=== PATIENT | female | born 1945 | race Caucasian/White ===

== ENCOUNTER 2020-03-23 16:28 | Inpatient (IN) | payer MEDICARE, OTHER ==
[~2020-03-23] VITALS: Ht 154.9 cm; Wt 96.5 kg
[~2020-03-23 16:28] MED LIST: ACETAMINOPHEN-1 EAC1 PO; AFRIN15 ML NS; AMOXICILLIN 50500 MG PO; BETA BLOCKER; BISOPROLOL FUMAR5 MG PO; CLARITIN-D 121 EACH PO; DOXYCYCLINE 10100 MG; FLEXERIL PO; HYDROCODON-ACE1 EACH PO; IBUPROFEN 800800 M1 PO; KEFLEX500 MG PO; LISINOPRIL-HCT1 EAC2 PO; NORCO 5-325 TA1 EACH PO; PROAIR HFA8.5 GM INH; PROMETHAZINE D480 ML PO; PROTONIX; PROTONIX40 M2 PO; REQUIP0.5 MG PO; SULFA DRUG; TESSALON PERLE100 MG PO; ZESTRIL40 MG PO; ZPAK PO; water pill PO
[2020-03-23 16:35] VITALS: BP 118/54; BP 121/19
[2020-03-23] MEDS ORDERED: NEURONTIN100 MG PO (16:45)
[2020-03-23] MEDS ORDERED: REQUIP 1 MG TABL1 M1 PO (16:45)
[2020-03-23 18:39] LABS: HEMATOCRIT 39.1 % (37.0-47.0); HEMOGLOBIN 13.5 gm/dL (12.0-15.0); MCH 30.2 pg (26.0-34.0); MCHC 34.4 g/dL (28.0-37.0); MCV 87.7 fL (80.0-100.0); MPV 8.7 fl. (7.2-11.1); NUCLEATED RBCS 0 /100WBC; PLATELET COUNT* 227 thou/uL (150-400); RBC 4.46 mil/uL (4.20-5.00); RDW-CV 14.6 % (10.5-14.5)
[2020-03-23 18:46] LABS: CALCIUM 8.5 mg/dL (8.5-10.1)
[2020-03-23 18:47] LABS: APTT 24.1 Seconds (25.0-31.3); INR 1.1
[2020-03-23 18:56] LABS: ALBUMIN 3.6 g/dL (3.4-5.0); TOTAL BILIRUBIN 0.4 mg/dL (<0.1-1.0)
[2020-03-23] MEDS ORDERED: REQUIP 0.25 M0.25 M1 PO (19:03)
[2020-03-23 19:04] LABS: ABSOLUTE LYMPHOCYTES 1.6 thou/uL (0.8-5.3); ABSOLUTE MONOCYTES 0.4 thou/uL (0.0-1.2); ABSOLUTE NEUTROPHILS 11.1 thou/uL (1.6-8.1); ATYPICAL LYMPHS 3 %; PLATELET ESTIMATE ADEQUATE
[2020-03-23 19:40] VITALS: BP 120/49
[2020-03-23 20:00] VITALS: BP 96/52
[2020-03-24] VITALS (7 sets, daily range): BP systolic 94–135; BP diastolic 40–57
[2020-03-24 04:42] LABS: HEMATOCRIT 32.5 % (37.0-47.0); MCH 30.5 pg (26.0-34.0); MCHC 34.6 g/dL (28.0-37.0); MCV 88.1 fL (80.0-100.0); MPV 8.3 fl. (7.2-11.1); RBC 3.69 mil/uL (4.20-5.00); RDW-CV 14.1 % (10.5-14.5); WBC 10.1 thou/uL (4.0-11.0)
[2020-03-24 04:47] LABS: PROTIME 10.7 Seconds (9.20-11.50)
[2020-03-24 05:00] LABS: ALBUMIN 2.9 g/dL (3.4-5.0); CALCIUM 7.6 mg/dL (8.5-10.1); MAGNESIUM 1.7 mg/dL (1.8-2.4); PHOSPHORUS* 5.4 mg/dL (2.5-4.9); POTASSIUM 4.9 mmol/L (3.5-5.1)
[2020-03-24 05:29] LABS: HEMOGLOBIN 11.2 gm/dL (12.0-15.0)
--- NOTE | 2020-03-24 09:29 | EKG ---
[place] [address] ELECTROCARDIOGRAM REPORT Name: GARAYCHIKA Room: [address] ADM IN .R.#: [id number] Admission: 03/23/20 Attend Phys: Izabella hernández Sa Discharge: Date of : 49 Date of Service: 03/23/20 1831 Report #: [id number] THIS REPORT FOR: //name// [facility] ED Test Date: 2020-03-23 Test Time: 18:31:49 Pat Name: CHIKA GARAY Department: Room: [facility] Gender: F [employer] Developer: FAUSTINO NÚÑEZ RN : 1945 Requested By: Klaudia Kearns Order Number: [id number] MD: Arvind Saravia Measurements Intervals [place] Rate: 60 P: 54 MN: 148 QRS: 13 QRSD: 93 T: 17 QT: 450 QTc: 450 Interpretive Statements Sinus rhythm Low voltage, precordial leads Baseline wander in lead(s) V2 Compared to ECG 02/11/2015 10:32:10 Low QRS voltage now present Electronically Signed On 03-24-2020 9:28:13 CDT by Arvind Saravia [email or web address] <ELECTRONICALLY SIGNED> By: Arvind Saravia MD, [facility] 03/24/20 0928 30 30 Arvind Saravia MD, [facility] /EPI
[2020-03-24 10:29] LABS: URINE BLOOD NEGATIVE (Negative); URINE CLARITY CLEAR; URINE COLOR YELLOW; URINE GLUCOSE-RANDOM NEGATIVE (Negative); URINE KETONES NEGATIVE (Negative); URINE LEUKOCYTES-REFLEX 1+ (Negative); URINE NITRITE-REFLEX NEGATIVE (Negative); URINE PROTEIN NEGATIVE (Negative); URINE SPECIFIC GRAVITY >= 1.030 (1.005-1.030); URINE UROBILINOGEN 0.2 E.U./dl (0.2-1.0)
[2020-03-24 10:30] LABS: URINE BILIRUBIN 1+ (Negative)
[2020-03-24 10:31] LABS: ICTOTEST (BILI CONFIRMATORY) Negative (Negative)
[2020-03-24 10:38] LABS: CASTS None Seen /LPF (None Seen); CRYSTALS None Seen /LPF (None Seen); URINE RBC None Seen /HPF (0-2); URINE WBC-REFLEX 6-15 Few /HPF (0-5)
--- NOTE | 2020-03-24 12:42 | 2DMMODE ---
[place] [address] 2 D/M-MODE ECHOCARDIOGRAM Name: CHIKA GARAY Room: [address] IN [facility]#: [id number] Admission: 03/23/20 Attend Phys: Izabella hernández Sa Discharge: Date of : 49 Date of Service: 03/24/20 1240 Report #: [id number] THIS REPORT FOR: cc: Daria Graves MD, Allison Louise MD Holkins,Arvind Turner MD [facility] ~ APPROVED REPORT Study performed: 03/24/2020 10:47:10 EXAM: Comprehensive 2D, Doppler, and color-flow Echocardiogram Patient Location: In-Patient Room #: [facility] Status: routine BSA: 1.91 HR: 61 bpm BP: 104/41 mmHg Rhythm: NSR Other Information Study Quality: Good Indications Dyspnea 2D Dimensions IVSd: 10.08 (7-11mm) LVOT Diam: 18.56 (18-24mm) LVDd: 41.94 mm PWd: 8.28 (7-11mm) Ascending Ao: 27.09 (22-36mm) LVDs: 21.92 (25-40mm) Aortic Root: 29.53 mm Volumes Left Atrial Volume (Systole) LA ESV Index: 21.30 mL/m2 Aortic Valve AoV Peak Omar.: 1.68 m/s AO Peak Gr.: 11.25 mmHg LVOT Max P.96 mmHg AO Mean Gr.: 6.06 mmHg LVOT Mean P.32 mmHg LVOT Max V: 1.73 m/s AO V2 VTI: 32.91 cm LVOT Mean V: 1.04 m/s KATIANA (VTI): 3.10 cm2 LVOT V1 VTI: 37.67 [place] [address] 2 D/M-MODE ECHOCARDIOGRAM Name: CHIKA GARAY Room: [address] IN [facility]#: [id number] Admission: 03/23/20 Attend Phys: Izabella hernández Sa Discharge: Date of : 49 Date of Service: 03/24/20 1240 Report #: [id number] Mitral Valve E/A Ratio: 0.77 MV Decel. Time: 214.95 ms MV E Max Omar.: 0.89 m/s MV PHT: 62.33 ms MVA (PHT): 3.53 cm2 TDI E/Lateral E': 7.42 E/Medial E': 9.89 Medial E' Omar.: 0.09 m/s Lateral E' Omar.: 0.12 m/s Pulmonary Valve PV Peak Omar.: 1.15 m/s PV Peak Gr.: 5.28 mmHg Tricuspid Valve RAP Estimate: 5.00 mmHg TR Peak Gr.: 47.26 mmHg RVSP: 52.00 mmHg PA Pressure: 52.00 mmHg Left Ventricle The left ventricle is normal size. There is normal LV segmental wall motion. There is normal left ventricular wall thickness. Left ventricular systolic function is normal. The left ventricular ejection fraction is within the normal range. LVEF is 60-65%. Grade I - abnormal relaxation pattern. Right Ventricle The right ventricle is normal size. The right ventricular systolic function is normal. Atria The left atrium size is normal. The right atrium size is normal. Aortic Valve The aortic valve is normal in structure. No aortic regurgitation is present. There is no aortic valvular stenosis. Mitral Valve Mild mitral annular calcification. There is no mitral valve regurgitation noted. No evidence of mitral valve stenosis. Tricuspid Valve The tricuspid valve is normal in structure. Mild tricuspid regurgitation. Moderate [place] [address] 2 D/M-MODE ECHOCARDIOGRAM Name: CHIKA GARAY Room: [address] IN ..#: [id number] Admission: 03/23/20 Attend Phys: Izabella hernández Sa Discharge: Date of : 49 Date of Service: 03/24/20 1240 Report #: [id number] Pulmonic Valve The pulmonary valve is normal in structure. There is no pulmonic valvular regurgitation. Great Vessels The aortic root is normal in size. IVC is normal in size and collapses >50% with inspiration. Pericardium There is no pericardial effusion. <Conclusion> The left ventricle is normal size. There is normal left ventricular wall thickness. Left ventricular systolic function is normal. The left ventricular ejection fraction is within the normal range. LVEF is 60-65%. Grade I - abnormal relaxation pattern. The right ventricle is normal size. The left atrium size is normal. The aortic valve is normal in structure. Mild mitral annular calcification. There is no mitral valve regurgitation noted. No evidence of mitral valve stenosis. The tricuspid valve is normal in structure. Mild tricuspid regurgitation. Moderate pulmonary hypertension. IVC is normal in size and collapses >50% with inspiration. There is no pericardial effusion. There is normal LV segmental wall motion. <ELECTRONICALLY SIGNED> By: Arvind Saravia MD, FACC 03/24/20 1240 1240 1240 Arvind Saravia MD, FACC /INF
[2020-03-25 02:07] LABS: GLYCOHEMOGLOBIN (HGB A1C) 5.8 % (4.8-5.6)
[2020-03-25 04:15] VITALS: BP 140/42
[2020-03-25 05:12] LABS: ALBUMIN 3.1 g/dL (3.4-5.0); ANION GAP 8 mmol/L (7-16); BUN 26 mg/dL (7-18); CALCIUM 8.4 mg/dL (8.5-10.1); CHLORIDE 104 mmol/L (98-107); CHOLESTEROL 164 mg/dL (<200); CO2 26 mmol/L (21-32); CREATININE 1.1 mg/dL (0.6-1.3); GLUCOSE 122 mg/dL (70-99); HDL CHOLESTEROL 32 mg/dL (>40); LDL CHOLESTEROL 101 mg/dL (<100); MAGNESIUM 2.1 mg/dL (1.8-2.4); PHOSPHORUS* 4.1 mg/dL (2.5-4.9); POTASSIUM 4.7 mmol/L (3.5-5.1); SODIUM 138 mmol/L (136-145); TC:HDL 5.1 Ratio (Not establshd); TRIGLYCERIDE 155 mg/dL (<150); VLDL 31 mg/dL (<40)
[2020-03-25 05:17] LABS: SERUM ASSESSMENT CLEAR
[2020-03-25 07:45] VITALS: BP 100/29
[2020-03-25 16:37] VITALS: BP 107/41
[2020-03-25 20:00] VITALS: BP 115/39
[2020-03-25 23:55] VITALS: BP 94/32
[2020-03-26 04:00] VITALS: BP 104/38
[2020-03-26 08:25] VITALS: BP 111/36
[2020-03-26 16:53] VITALS: BP 101/40
[2020-03-26 19:30] VITALS: BP 115/56
[2020-03-27 00:36] VITALS: BP 115/56
[2020-03-27 04:27] LABS: HEMATOCRIT 31.3 % (37.0-47.0); HEMOGLOBIN 10.7 gm/dL (12.0-15.0); MCH 30.5 pg (26.0-34.0); MCHC 34.2 g/dL (28.0-37.0); MCV 89.3 fL (80.0-100.0); MPV 8.5 fl. (7.2-11.1); RBC 3.51 mil/uL (4.20-5.00); RDW-CV 14.2 % (10.5-14.5); WBC 10.1 thou/uL (4.0-11.0)
[2020-03-27 04:34] LABS: CALCIUM 8.3 mg/dL (8.5-10.1); CREATININE 0.9 mg/dL (0.6-1.3); MAGNESIUM 1.7 mg/dL (1.8-2.4); POTASSIUM 4.2 mmol/L (3.5-5.1)
[2020-03-27 08:00] VITALS: BP 119/44
[2020-03-27 09:00] VITALS: BP 115/56; BP 93/50
[2020-03-27 20:00] VITALS: BP 100/45
[2020-03-28] VITALS: BP 104/41
[2020-03-28 04:29] LABS: HEMOGLOBIN 8.8 gm/dL (12.0-15.0)
[2020-03-28 08:22] VITALS: BP 120/45
[2020-03-28 16:18] VITALS: BP 116/55
[2020-03-28 19:30] VITALS: BP 99/37
[2020-03-29 00:18] VITALS: BP 102/42
[2020-03-29 04:22] LABS: ABSOLUTE EOSINOPHILS 0.2 thou/uL (0.0-0.7); ABSOLUTE LYMPHOCYTES 2.5 thou/uL (0.8-5.3); ABSOLUTE MONOCYTES 0.6 thou/uL (0.0-1.2); ABSOLUTE NEUTROPHILS 6.9 thou/uL (1.6-8.1); BASOPHILS 0.4 %; HEMATOCRIT 23.3 % (37.0-47.0); HEMOGLOBIN 8.1 gm/dL (12.0-15.0); LYMPHOCYTES 24.3 %; MCH 30.8 pg (26.0-34.0); MCHC 34.7 g/dL (28.0-37.0); MCV 88.8 fL (80.0-100.0); MONOCYTES 5.9 %; NUCLEATED RBCS 0 /100WBC; PLATELET COUNT* 217 thou/uL (150-400); POLYS 67.4 %; RBC 2.62 mil/uL (4.20-5.00); RDW-CV 14.2 % (10.5-14.5); WBC 10.2 thou/uL (4.0-11.0)
[2020-03-29 05:14] LABS: ALBUMIN 2.7 g/dL (3.4-5.0); CALCIUM 8.1 mg/dL (8.5-10.1); CREATININE 1.1 mg/dL (0.6-1.3); POTASSIUM 4.4 mmol/L (3.5-5.1); TOTAL BILIRUBIN 0.5 mg/dL (<0.1-1.0); TOTAL PROTEIN 5.7 g/dL (6.4-8.2)
[2020-03-29 08:00] VITALS: BP 102/38
[2020-03-29 09:39] VITALS: BP 102/38
[2020-03-29 19:30] VITALS: BP 110/45
[2020-03-30] VITALS: BP 95/48
[2020-03-30 04:39] LABS: HEMATOCRIT 24.7 % (37.0-47.0); HEMOGLOBIN 8.3 gm/dL (12.0-15.0); MCH 30.4 pg (26.0-34.0); MCHC 33.6 g/dL (28.0-37.0); MCV 90.5 fL (80.0-100.0); MPV 8.4 fl. (7.2-11.1); NUCLEATED RBCS 0 /100WBC; PLATELET COUNT* 221 thou/uL (150-400); RBC 2.73 mil/uL (4.20-5.00); RDW-CV 14.8 % (10.5-14.5); WBC 9.3 thou/uL (4.0-11.0)
[2020-03-30 05:01] LABS: CREATININE 0.9 mg/dL (0.6-1.3); POTASSIUM 4.6 mmol/L (3.5-5.1)
[2020-03-30 06:20] LABS: ABSOLUTE EOSINOPHILS 0.1 thou/uL (0.0-0.7); ABSOLUTE LYMPHOCYTES 2.7 thou/uL (0.8-5.3); ABSOLUTE MONOCYTES 0.7 thou/uL (0.0-1.2); ABSOLUTE NEUTROPHILS 5.8 thou/uL (1.6-8.1); PLATELET ESTIMATE ADEQUATE
[2020-03-30 06:21] LABS: ANISOCYTOSIS 1+; HYPOCHROMASIA 1+; POIKILOCYTOSIS 1+; POLYCHROMASIA 1+
[2020-03-30 07:57] VITALS: BP 101/43
[2020-03-30 12:46] VITALS: BP 100/33
[2020-03-30 16:36] VITALS: BP 100/37
[2020-03-30 20:10] VITALS: BP 99/33
[2020-03-31] VITALS: BP 102/44
[2020-03-31 04:52] LABS: HEMATOCRIT 22.7 % (37.0-47.0); HEMOGLOBIN 7.8 gm/dL (12.0-15.0)
[2020-03-31 08:00] VITALS: BP 97/39
[2020-03-31 08:19] VITALS: BP 102/38
[2020-03-31 17:02] VITALS: BP 112/44
[2020-03-31 20:10] VITALS: BP 121/52
[2020-03-31 23:45] VITALS: BP 111/39
[2020-04-01 04:47] LABS: ABSOLUTE EOSINOPHILS 0.2 thou/uL (0.0-0.7); ABSOLUTE LYMPHOCYTES 2.3 thou/uL (0.8-5.3); ABSOLUTE MONOCYTES 0.4 thou/uL (0.0-1.2); ABSOLUTE NEUTROPHILS 4.2 thou/uL (1.6-8.1); BASOPHILS 0.5 %; EOSINOPHILS 2.4 %; HEMATOCRIT 24.8 % (37.0-47.0); HEMOGLOBIN 8.3 gm/dL (12.0-15.0); MCH 30.5 pg (26.0-34.0); MCHC 33.4 g/dL (28.0-37.0); MCV 91.4 fL (80.0-100.0); MONOCYTES 5.3 %; NUCLEATED RBCS 1 /100WBC; PLATELET COUNT* 253 thou/uL (150-400); POLYS 59.8 %; RBC 2.72 mil/uL (4.20-5.00); RDW-CV 15.2 % (10.5-14.5); WBC 7.1 thou/uL (4.0-11.0)
[2020-04-01 05:26] LABS: ALBUMIN 2.4 g/dL (3.4-5.0); CALCIUM 8.1 mg/dL (8.5-10.1); CREATININE 0.9 mg/dL (0.6-1.3); POTASSIUM 4.1 mmol/L (3.5-5.1); TOTAL BILIRUBIN 0.8 mg/dL (<0.1-1.0); TOTAL PROTEIN 5.4 g/dL (6.4-8.2)
[2020-04-01 08:00] VITALS: BP 120/47
[2020-04-01] MEDS ORDERED: HYDROCODONE/ACETAMIN (13:37)
[2020-04-01] MEDS ORDERED: IBU-200200 MG PO (13:53)
[2020-04-01] MEDS ORDERED: ERGOCALCIFEROL PO (14:09)
[2020-04-01 14:33] VITALS: BP 102/38
[2020-04-01] MEDS ORDERED: CALCIUM 600 +1 EA10 PO (15:46)
--- NOTE | 2020-04-03 20:56 | OP ---
[address] [address] OPERATIVE REPORT Name: CHIKA GARAY Room: [address]R.#: [id number] Admission: 03/23/20 Attend Phys: Izabella Ventura Discharge: 04/01/20 Date of : 49 Report #: [id number] THIS REPORT FOR: //name// cc: Daria Graves MD, Allison Louise MD ~ THIS REPORT FOR: //name// CC: Daria Hoffman DATE OF SERVICE: 03/27/2020 PREOPERATIVE DIAGNOSIS: Right proximal one-third humerus fracture, comminuted, displaced. POSTOPERATIVE DIAGNOSIS: Right proximal one-third humerus fracture, comminuted, displaced. PROCEDURE: Open reduction and internal fixation of right comminuted proximal humerus fracture. SURGEON: Socrates Velarde DO ASSISTANTS: 1. Brandyn Hudson DO 2. Tone Portillo DO ANESTHESIA: General. ANTIBIOTICS: Ancef. INTRAVENOUS FLUIDS: 1000 mL lactated Ringer's. ESTIMATED BLOOD LOSS: 300 mL. COMPLICATIONS: None. SPECIMENS: None. DRAINS: None. CONDITION OF PATIENT: Stable to PACU. IMPLANTS: Ilene ALPS proximal humerus plate with 3.5 locking screws proximally and 3.5 cortical screws distally, 8-hole plate total. [address] [address] OPERATIVE REPORT Name: CHIKA GARAY Room: [address] IN [facility].#: [id number] Admission: 03/23/20 Attend Phys: Izabella kellogg adriel Alba Discharge: 04/01/20 Date of : 49 Report #: [id number] INDICATIONS FOR PROCEDURE: The patient admitted to [facility]. Originally, my partner, Dr. Lopez, was consulted. He asked that I take over care due to my fracture training. We both agreed operative fixation would be the treatment option of choice. We went over with the patient and her daughter risks and complications of surgery as well as the reasoning for surgery. Please see previous notes for details. Consent was obtained. They acknowledged and accepted and wished for surgery. DESCRIPTION OF PROCEDURE: I marked the right upper extremity in the presence of operative team members. Everyone agreed this was correct. She was taken back to the operative suite and general anesthetic administered. She was transferred over to the operative table, placed into the beach chair position, appropriately padded and secured. The right upper extremity was sterilely prepped and draped in standard fashion. Timeout was performed indicating correct patient, procedure, site, antibiotics and that implants were present and sterile. All team members agreed. Marked out an incision for deltopectoral extending onto the anterolateral, scalpel through skin, full thickness flaps down to the deltopectoral interval proximally and cephalic vein identified. She had thrombosed this vein already, where there was hemorrhage within it, most likely from the fracture injury. We traced the vein down, protected and took laterally, deltopectoral interval proximally, found and released adhesions and placed a Alejandro deltoid retractor. We were careful not to go too medial or mess with the conjoined tendon to protect neurovascular structures. Incised through the fascia overlying biceps. Biceps and its underlying neurovascular structures were taken medially and protected. Midline brachialis split was performed, so that we could gain access to the humerus for plate placement. The plate we would be using has a curve built into it, so therefore we did not strip any deltoid. She had fully ruptured her pectoralis tendon with this fracture and this would be repaired later. We were able to observe the fracture site. There was severe comminution and multiple fracture planes. This was confirmed and expected based on CT scan. We were able to overall obtain a length, alignment, rotation, and acceptable anatomic reduction and hold in place with K wires. We then placed the plate in its appropriate position just lateral to the biceps tendon, pinned this into position, brought in multiplanar C-arm imaging confirming our plate placement was sitting appropriately. We went with the lower plate placement as there are 2 options, this sets 2 cm distal to the greater tuberosity and it was in excellent position. We then drilled and placed our first cortical screw distal to the fracture site. This gave some plate stability and sucked to bone. We then drilled and placed locking screws proximally including the kickstand screw making sure that we measured and subtracted a couple of millimeters, so that we would be contained within the humeral head. Drilled and placed the remaining cortical screws distally. The cortical screws distally all had excellent purchase. We removed K wires. Excellent stability of our fracture fragment and anatomic reduction. Multiplanar C-arm imaging again showed excellent reduction and placement of all hardware. All pegs had been removed from the plate and accounted for on the [address] [address] OPERATIVE REPORT Name: CHIKA GARAY Room: [address] [place] M.R.#: [id number] Admission: 03/23/20 Attend Phys: Izabella Ventura Discharge: 04/01/20 Date of : 49 Report #: [id number] back table. Saved those final images, thoroughly irrigated with normal saline. A #2 FiberWire was used to put sutures through the rotator cuff and so the plate add as extra fixation of tuberosities. Reapproximated our fascia of the biceps with 0 Vicryl [id number] interrupted and 0 Vicryl [id number] interrupted for the deltopectoral interval. Subcutaneous tissue and deep layers were closed with 0 Vicryl [id number]-[id number] interrupted. Subcutaneous was closed with 2-0 Monocryl buried deep and skin was with a running 3-0 nylon. Debriefing performed confirming procedure, blood loss, and that all counts were correct and final. All team members agreed. A sterile Prevena incisional VAC dressing was applied and she was extubated and taken to PACU stable. POSTOPERATIVE COURSE AND EVALUATION: I spoke with her daughter per wishes and addressed any questions to stated satisfaction. She was thankful for my time and efforts. The patient was resting in PACU with stable vital signs, pain controlled, neurovascularly intact, compartments soft and compressible, dressing clean, dry and intact and functioning appropriately. PACU films showed stable internal fixation and fracture reduction. DVT prophylaxis will be both pharmacological and mechanical as directed until instructed otherwise. PT/OT, range of motion will be encouraged. We will maintain a nonweightbearing status. I encouraged nursing, medical staff, the patient and family to call anytime with questions or concerns. <ELECTRONICALLY SIGNED> By: Socrates Velarde, 04/03/20 2056 1454 [id number] Velarde DO /breanne
== END 2020-04-01 17:20 | disposition home health service (06) | DRG 493 ==
LOC: M.ERS 16:28 → M.ORTHSURG 18:19 → M.TBA-ER 18:19 → M.2W 18:19 → M.ORTHSURG 03-26 17:15 → M.2W 03-27 16:52
PROVIDERS: Internal Medicine; Nurse Practitioner; Orthopaedic Surgery; Physician Assistant; ADMIT Family Medicine
PROC: 0PSC04Z Reposition Right Humeral Head with Internal Fixation Device, Open Approach (ICD-10-PCS; principal; 2020-03-27)
PROC: 3E0T3BZ Introduction of Anesthetic Agent into Peripheral Nerves and Plexi, Percutaneous Approach (ICD-10-PCS; 2020-03-27)
DX: M80.021A Age-related osteoporosis with current pathological fracture, right humerus, initial encounter for fracture (principal); N39.0 Urinary tract infection, site not specified; Z68.41 Body mass index [BMI] 40.0-44.9, adult; D50.0 Iron deficiency anemia secondary to blood loss (chronic); G25.81 Restless legs syndrome; M17.11 Unilateral primary osteoarthritis, right knee; D72.829 Elevated white blood cell count, unspecified; E66.9 Obesity, unspecified; K21.9 Gastro-esophageal reflux disease without esophagitis; I10 Essential (primary) hypertension; Z96.652 Presence of left artificial knee joint; Z79.899 Other long term (current) drug therapy; Z88.8 Allergy status to other drugs, medicaments and biological substances; Z91.041 Radiographic dye allergy status

== ENCOUNTER → 2021-02-07 | Outpatient (CLI) | payer MEDICARE, OTHER ==
[~2021-02-07] MED LIST changes: +CALCIUM 600 +1 EA10 PO; +ERGOCALCIFEROL PO; +HYDROCODONE/ACETAMIN; +IBU-200200 MG PO; +NEURONTIN100 MG PO; +REQUIP 0.25 M0.25 M1 PO; +REQUIP 1 MG TABL1 M1 PO
== END ==
LOC: M.MRI 08:00
PROVIDERS: ATTEND Orthopaedic Surgery
DX: S43.401A Unspecified sprain of right shoulder joint, initial encounter (principal); M19.011 Primary osteoarthritis, right shoulder; M75.101 Unspecified rotator cuff tear or rupture of right shoulder, not specified as traumatic; X58.XXXA Exposure to other specified factors, initial encounter; Y93.89 Activity, other specified; Y92.89 Other specified places as the place of occurrence of the external cause; Y99.8 Other external cause status

== ENCOUNTER 2021-05-13 11:53 | Emergency (ER) | payer MEDICARE, OTHER ==
[~2021-05-13] VITALS: Ht 152.4 cm; Wt 89.4 kg
[2021-05-13 12:00] VITALS: BP 156/71
[2021-05-13 12:41] LABS: MPV 7.4 fl. (7.2-11.1)
[2021-05-13 12:42] LABS: ABSOLUTE BASOPHILS 0.1 thou/uL (0.0-0.2); ABSOLUTE EOSINOPHILS 0.1 thou/uL (0.0-0.7); ABSOLUTE LYMPHOCYTES 2.5 thou/uL (0.8-5.3); ABSOLUTE MONOCYTES 0.6 thou/uL (0.0-1.2); BASOPHILS 0.6 %; EOSINOPHILS 1.7 %; HEMATOCRIT 35.9 % (37.0-47.0); HEMOGLOBIN 12.4 gm/dL (12.0-15.0); LYMPHOCYTES 30.7 %; MCH 30.9 pg (26.0-34.0); MCHC 34.5 g/dL (28.0-37.0); MCV 89.7 fL (80.0-100.0); MONOCYTES 6.8 %; NUCLEATED RBCS 0 /100WBC; PLATELET COUNT* 263 thou/uL (150-400); POLYS 60.2 %; RDW-CV 14.5 % (10.5-14.5); WBC 8.2 thou/uL (4.0-11.0)
[2021-05-13 12:47] LABS: CALCIUM 8.7 mg/dL (8.5-10.1); CREATININE 0.9 mg/dL (0.6-1.3)
[2021-05-13 12:51] LABS: ALBUMIN 3.1 g/dL (3.4-5.0); TOTAL BILIRUBIN 0.4 mg/dL (<0.1-1.0); TOTAL PROTEIN 6.8 g/dL (6.4-8.2)
== END 2021-05-13 13:21 | disposition home or self-care (01) ==
LOC: M.ERS 11:53
PROVIDERS: Physician Assistant
DX: M79.662 Pain in left lower leg (principal); R06.02 Shortness of breath; R22.32 Localized swelling, mass and lump, left upper limb; I10 Essential (primary) hypertension; Z88.8 Allergy status to other drugs, medicaments and biological substances; Z91.041 Radiographic dye allergy status; Z79.899 Other long term (current) drug therapy